=== PATIENT | female | born 1990 | race Two or more races ===

== ENCOUNTER 2020-12-04 23:36 | Outpatient (CLI) | payer OTHER ==
[~2020-12-04] VITALS: Ht 160 cm; Wt 91.0 kg
[~2020-12-04 23:36] MED LIST: DOCU100C33 PO; IBUP-1222 PO; OXYC1TAB12 PO; PREN1TAB56 PO
[2020-12-05 00:06] VITALS: BP 121/85
[2020-12-06] MEDS ORDERED: DOCU-131 PO (10:11)
[2020-12-06] MEDS ORDERED: IBUP-1222 PO (10:11)
== END 2020-12-05 00:53 | disposition home or self-care (01) ==
LOC: LDOP 23:36
PROVIDERS: ATTEND Student in an Organized Health Care Education/Training Program
DX: O26.893 Other specified pregnancy related conditions, third trimester (principal); R10.9 Unspecified abdominal pain; Z3A.39 39 weeks gestation of pregnancy
CPT/HCPCS: 59025

== ENCOUNTER 2020-12-05 01:52 | Inpatient (IN) | payer OTHER ==
[~2020-12-05] VITALS: Ht 157.5 cm; Wt 91.0 kg
[2020-12-05] MEDS ORDERED: MISOPROSTOL 200 MCG TABLET ONE (02:05)
[2020-12-05] MEDS ORDERED: OXYTOCIN 30U/ 0.9% NaCL 500ML 500 ML ONE (02:06)
[2020-12-05] MEDS: LACTATED RINGERS 1,000 ML IV SCH ×2 (02:10→11:15)
[2020-12-05] MEDS ORDERED: PENICILLIN GK 5,000,000 UNITS in DEXTROSE 5% 100 ML IVPB ONE (02:30)
[2020-12-05] MEDS ORDERED: TERBUTALINE 1 MG/ML, 1ML IVPush PRN (02:30)
[2020-12-05] MEDS ORDERED: OXYTOCIN 30U/ 0.9% NaCL 500ML 500 ML IV ONE (02:30)
[2020-12-05] MEDS ORDERED: PENICILLIN GK 2,500,000 UNITS in DEXTROSE 5% 100 ML IVPB SCH (02:30)
[2020-12-05] MEDS ORDERED: TERBUTALINE 1 MG/ML, 1ML SQ PRN (02:30)
[2020-12-05 02:32] LABS: BASOPHILS % (AUTO) 1 % (0-1); EOSINOPHILS % (AUTO) 3 % (1-7); LYMPHOCYTES % (AUTO) 33 % (22-44); MEAN CORPUSCULAR HEMOGLOBIN 31.6 pg (27.0-34.8); MEAN CORPUSCULAR HGB CONC 34.5 g/dL (32.4-35.8); MEAN PLATELET VOLUME 8.5 fL (7.4-10.4); MONOCYTES % (AUTO) 9 % (2-9); NEUTROPHILS % (AUTO) 55 % (42-75); PLATELET COUNT 226 x10^3/uL (130-400); RED BLOOD COUNT 4.08 x10^6/uL (3.82-5.3); RED CELL DISTRIBUTION WIDTH 13.2 % (9.6-15.2)
[2020-12-05 02:51] VITALS: BP 123/81
[2020-12-05] MEDS ORDERED: OXYTOCIN 30U/ 0.9% NaCL 500ML 500 ML IV PRN (05:30)
[2020-12-05] MEDS ORDERED: FENTANYL PF 100 MCG/2ML ONE (08:27)
[2020-12-05] MEDS: FENTANYL PF 100 MCG/2ML IVPush PRN ×2 (08:30→16:13)
[2020-12-05] MEDS ORDERED: FENTANYL PF 100 MCG/2ML IV PRN (09:00)
[2020-12-05] MEDS ORDERED: CARBOPROST TROMETHAMINE 250 MCG/ML, 1ML IM PRN (09:30)
[2020-12-05] MEDS ORDERED: ACETAMINOPHEN 325 MG TABLET PO PRN ×2 (09:30)
[2020-12-05] MEDS ORDERED: SIMETHICONE 80 MG CHEW TAB PO PRN (09:30)
[2020-12-05] MEDS ORDERED: ONDANSETRON 2MG/ML, 2ML IV PRN (09:30)
[2020-12-05] MEDS ORDERED: GLYCERIN ADULT SUPP PR PRN (09:30)
[2020-12-05] MEDS ORDERED: OXYcodone/APAP 5/325MG TABLET PO PRN ×2 (09:30)
[2020-12-05] MEDS ORDERED: MISOPROSTOL 200 MCG TABLET PR PRN (09:30)
[2020-12-05] MEDS ORDERED: METOCLOPRAMIDE 5 MG/ML, 2ML IV PRN (09:30)
[2020-12-05] MEDS ORDERED: BISACODYL 10 MG SUPP PR PRN (09:30)
[2020-12-05] MEDS ORDERED: METHYLERGONOVINE 0.2 MG/ML IM PRN (09:30)
[2020-12-05] MEDS: IBUPROFEN 600 MG TABLET PO PRN ×2 (11:14→17:22)
[2020-12-05] MEDS: OXYTOCIN 30U/ 0.9% NaCL 500ML 500 ML IV SCH ×2 (11:15→19:30)
[2020-12-05 12:30] VITALS: BP 130/79
[2020-12-05 16:45] VITALS: BP 111/74
[2020-12-05 17:28] LABS: BASOPHILS % (AUTO) 1 % (0-1); EOSINOPHILS % (AUTO) 1 % (1-7); LYMPHOCYTES % (AUTO) 13 % (22-44); MEAN CORPUSCULAR HEMOGLOBIN 31.4 pg (27.0-34.8); MEAN CORPUSCULAR HGB CONC 33.9 g/dL (32.4-35.8); MEAN PLATELET VOLUME 8.4 fL (7.4-10.4); MONOCYTES % (AUTO) 5 % (2-9); NEUTROPHILS % (AUTO) 81 % (42-75); PLATELET COUNT 245 x10^3/uL (130-400); RED BLOOD COUNT 4.35 x10^6/uL (3.82-5.3); RED CELL DISTRIBUTION WIDTH 13.3 % (9.6-15.2)
[2020-12-05 20:30] VITALS: BP 108/73
[2020-12-06 00:15] VITALS: BP 121/65
[2020-12-06] MEDS: IBUPROFEN 600 MG TABLET PO PRN ×2 (00:24→06:51)
[2020-12-06] MEDS: DOCUSATE 100 MG CAPSULE PO PRN ×2 (00:24→10:25)
[2020-12-06 04:30] VITALS: BP 114/76
[2020-12-06] MEDS: OXYTOCIN 30U/ 0.9% NaCL 500ML 500 ML IV SCH (05:30)
[2020-12-06] MEDS ORDERED: PRENATAL VIT/IRON/FA 1 EACH TABLET PO SCH (09:00)
[2020-12-06 09:55] VITALS: BP 104/70
[2020-12-06] MEDS ORDERED: IBUP-1222 PO (10:11)
[2020-12-06] MEDS ORDERED: DOCU-131 PO (10:11)
== END 2020-12-06 12:10 | disposition home or self-care (01) | DRG 807 ==
LOC: LDIP 01:52 → 2NW 11:34
PROVIDERS: ADMIT Student in an Organized Health Care Education/Training Program; ATTEND Student in an Organized Health Care Education/Training Program
PROC: 10E0XZZ Delivery of Products of Conception, External Approach (ICD-10-PCS; principal; 2020-12-05)
PROC: 0KQM0ZZ Repair Perineum Muscle, Open Approach (ICD-10-PCS; 2020-12-05)
DX: O70.1 Second degree perineal laceration during delivery (principal); Z37.0 Single live birth; Z20.822 Contact with and (suspected) exposure to COVID-19; Z3A.39 39 weeks gestation of pregnancy; Z86.16 Personal history of COVID-19
CPT/HCPCS: 36415; 85025; 86592; 86850; 86900; 87635; G0378; J2540; J3010; J2590; J7120